=== PATIENT | female | born 1960 | race American Indian/Alaskan Native ===

== ENCOUNTER 2017-09-04 07:25 | Outpatient (CLI) | payer OTHER ==
[2017-09-04] MEDS ORDERED: PROVENTIL IH ONE (08:29)
== END 2017-09-04 07:26 | disposition home or self-care (01) ==
LOC: PF 07:25
PROVIDERS: ATTEND Internal Medicine
DX: R06.89 Other abnormalities of breathing (principal); E11.9 Type 2 diabetes mellitus without complications; R35.0 Frequency of micturition; B19.20 Unspecified viral hepatitis C without hepatic coma; R41.3 Other amnesia; M53.9 Dorsopathy, unspecified; F17.200 Nicotine dependence, unspecified, uncomplicated
CPT/HCPCS: 94060; 94640; 94729